=== PATIENT | male | born 1960 ===

== ENCOUNTER → 2024-03-16 10:13 | Outpatient (CLI) | payer OTHER, SELFPAY ==
[2024-03-16 11:08] LABS: Add Manual Diff / Slide Review NO; Basophils Absolute Auto 0 /uL (0-100); Basophils Percent Auto 0.2 % (0-2); Eosinophils Absolute Auto 200 /uL (0-450); Eosinophils Percent Auto 3.2 % (2-4); Hematocrit 39.9 % (41-53); Hemoglobin 13.7 g/dL (13.5-17.5); Lymphocytes Absolute Auto 2100 /uL (1100-4500); Lymphocytes Percent Auto 29.7 % (25-40); Mean Corpuscular HGB Conc 34.3 % (30-36); Mean Corpuscular Hemoglobin 29.4 PG (26-34); Mean Corpuscular Volume 85.6 fL (80-100); Monocytes Absolute Auto 600 /uL (0-900); Neutrophils Absolute Auto 4100 /uL (1500-7000); Neutrophils Percent Auto 57.9 % (50-75); Platelet Count 240 X10^3/uL (150-400); Red Blood Cell Count 4.67 X10^6/uL (4.5-5.9); White Blood Cell Count 7.1 X10^3/uL (4.5-11.0)
[2024-03-16 11:09] LABS: Hemoglobin A1C% w Est Avg Glu 5.5 % (4.0-6.0)
[2024-03-16 11:15] LABS: Albumin 4.3 g/dL (3.5-5.0); BUN Creatinine Ratio 13.9 (6-22); Blood Urea Nitrogen 19 mg/dL (9-20); Calcium 9.2 mg/dL (8.4-10.2); Carbon Dioxide 27 mmol/L (22-32); Chloride 107 mmol/L (98-107); Estimated Glomerular Filt Rate 58 mL/min (>60); Glucose 103 mg/dL (80-110); HEMOLYSIS < 15 (0-50); Potassium 3.7 mmol/L (3.4-5.1); Sodium 139 mmol/L (137-145)
[2024-03-16 11:22] LABS: Prealbumin 25.9 mg/dL (17.6-36.0)
== END ==
PROVIDERS: Family Provider Family Medicine; PCP Physician Assistant Medical; Referring Provider Orthopaedic Surgery Adult Reconstructive Orthopaedic Surgery; Visit Provider Orthopaedic Surgery Adult Reconstructive Orthopaedic Surgery
DX: Z01.818 Encounter for other preprocedural examination (principal); R77.0 Abnormality of albumin; E55.9 Vitamin D deficiency, unspecified; Z01.812 Encounter for preprocedural laboratory examination; R73.9 Hyperglycemia, unspecified
CPT/HCPCS: 36415; 80048; 82040; 82306; 83036; 84134; 85025; 93005

== ENCOUNTER → 2024-06-11 15:26 | Outpatient (CLI) | payer OTHER, SELFPAY ==
--- NOTE | 2024-06-11 15:28 | DI.MRI.S_ITS ---
PROCEDURE: MR LUMBAR SPINE WO CON INDICATIONS: SPINAL STENOSIS,LUMBAR REGION TECHNIQUE: Noncontrast sagittal T1 spin echo and T2 fast echo, sagittal STIR, and T2 fast spin echo through the lumbar spine. In cases with scoliosis, additional coronal T2 fast spin echo may be performed. COMPARISON: [facility], MR, L-SPINE WITHOUT CONTRAST, 02/25/2015, 9:41. FINDINGS: Mild levoscoliosis of the lumbar spine, centered at L3. Straightening of the lumbar spine. Mild retrolisthesis of L4 on L5.Mild subchondral cystic changes at the inferior endplate of L4, degenerative. Mild marrow edema of the anterior disc osteophyte complex of T11-T12, degenerative. Conus terminates at the level of L1-2, and is unremarkable. Vertebral body height of the lumbar spine are well maintained. Right neural foraminal stenosis: Moderate to severe at L3-4. Mild at L4-5. Left neural foraminal stenosis. Mild at L3-4. Moderate at L4-5 and L5-S1. Central canal stenosis: T12-L1: Mild bilateral facet arthropathy. No central canal stenosis. L1-2: Disc bulge. Mild bilateral facet arthropathy. No central canal stenosis. L2-3: Disc bulge. Moderate right and left facet arthropathy. Mild central canal stenosis. L3-4: Disc bulge. Moderate right, mild left facet arthropathy. Moderate central canal stenosis. L4-5: Disc bulge. Mild bilateral facet arthropathy. Mild central canal stenosis. L5-S1: Mild bilateral facet arthropathy. Disc bulge. No central canal stenosis. Visualized sacrum is unremarkable. Suggestion of infrarenal abdominal aortic aneurysm, incompletely visualized. Scarring in the right kidney. IMPRESSION: 1. Multilevel degenerative changes of the lumbar spine, most pronounced at L3-4, where there is moderate central canal stenosis and moderate to severe right neural foraminal stenosis, grossly unchanged from prior exam. Dictated by: Mana Mckeon M.D. on 06/11/2024 at 17:25 Approved by: Mana Mckeon M.D. on 06/11/2024 at 17:35
== END ==
PROVIDERS: Family Provider Family Medicine; PCP Physician Assistant Medical; Referring Provider Physical Medicine & Rehabilitation Pain Medicine; Visit Provider Physical Medicine & Rehabilitation Pain Medicine
DX: M48.062 Spinal stenosis, lumbar region with neurogenic claudication (principal); M47.816 Spondylosis without myelopathy or radiculopathy, lumbar region; M47.817 Spondylosis without myelopathy or radiculopathy, lumbosacral region
CPT/HCPCS: 72148